=== PATIENT | male | born 1930 | race Caucasian/White ===

== ENCOUNTER → 2019-01-12 | Outpatient (REF) | payer MEDICARE ==
[~2019-01-12] MED LIST: ASPIRIN EC81 MG PO; HYZAAR1 TA2 PO; MIRALAX3350 N1 PO; PERCOCET 10/31 COMBO PO; PLAVIX75 MG PO; PRAVASTATIN40 MG PO; VITAMIN B-COMPLEX PO
[2019-01-18 20:08] LABS: Acetylcholine Rec Binding_i <0.30 nmol/L (())
== END | disposition home or self-care (01) ==
LOC: LAB 13:23
PROVIDERS: ATTEND Ophthalmology
DX: G70.00 Myasthenia gravis without (acute) exacerbation (principal)

== ENCOUNTER 2020-07-09 14:55 | Emergency (ER) | payer MEDICARE ==
[~2020-07-09] VITALS: Ht 165.1 cm; Wt 68.2 kg
[2020-07-09 17:03] LABS: HEMATOCRIT 35.5 % (39.0-50.0); HEMOGLOBIN 11.3 g/dl (14.0-18.0); IMMATURE GRANULOCYTES 0.5 % (0.0-5.0); MEAN CELL VOLUME 96.2 fL CALC (80.0-100.0); MEAN CORPUSCULAR HGB 30.6 pG CALC (26.0-32.0); MEAN CORPUSCULAR HGB CONC 31.8 g/dL CAL (32.0-36.0); NEUT# 11.68 thou/uL (1.82-7.42); RED BLOOD COUNT 3.69 mill/uL (4.70-6.10); RED CELL DISTRI WIDTH 13.3 % (11.5-15.5)
[2020-07-09 17:18] LABS: ALBUMIN 3.7 g/dL (3.2-5.0); POTASSIUM 4.6 mmol/l (3.5-5.1); TOTAL PROTEIN 6.3 g/dL (6.3-8.2)
[2020-07-09 17:22] LABS: BILIRUBIN, TOTAL 1.3 mg/dL (0.0-1.4)
[2020-07-09 19:07] LABS: URINE BILIRUBIN - DIPSTICK NEGATIVE (NEGATIVE); URINE BLOOD DIPSTICK TRACE-INTACT (NEGATIVE); URINE COLOR YELLOW; URINE GLUCOSE - DIPSTICK NEGATIVE (NEGATIVE); URINE KETONE NEGATIVE (NEGATIVE); URINE LEUK ESTERASE NEGATIVE (NEGATIVE); URINE NITRITE - DIPSTICK NEGATIVE (Negative); URINE PH 5.5 (4.5-8.0); URINE PROTEIN - DIPSTICK 100 mg/dL (NEG-TRACE); URINE SPECIFIC GRAVITY >=1.030; URINE UROBILINOGEN - DIPSTICK 0.2 E.U./dL (0.2)
[2020-07-09 19:19] LABS: URINE RBC 0-2 RBC/hpf (0-5)
[2020-07-09] MEDS ORDERED: CIPROFLOXACN500 MG PO ×3 (20:40→21:10)
[2020-07-09] MEDS ORDERED: PYRIDIUM200 MG PO ×3 (20:40→21:10)
[2020-07-09] MEDS ORDERED: TAMSULOSIN0.4 MG PO ×3 (20:43→21:10)
[2020-07-09 20:54] VITALS: BP 156/68
== END 2020-07-09 21:10 | disposition home or self-care (01) ==
LOC: ED 14:55
PROVIDERS: Family Medicine
DX: N39.0 Urinary tract infection, site not specified (principal); K80.20 Calculus of gallbladder without cholecystitis without obstruction; I10 Essential (primary) hypertension
CPT/HCPCS: J1956